=== PATIENT | female | born 1990 | race Caucasian/White ===

== ENCOUNTER 2021-03-04 09:02 | Emergency (ER) | payer BC, SELFPAY ==
[2021-03-04 09:05] VITALS: BP 121/87; PULSE 80; RESP 18; TEMP 36.7; O2SAT 97; BMI 33.1
--- NOTE | 2021-03-04 09:26 | HMH.EDUTC ---
[facility] [place] Disposition Clinical Impression: Viral syndrome Sinusitis Qualifiers: Sinusitis location: unspecified location Chronicity: acute Recurrence: non-recurrent Qualified Code(s): J01.90 - Acute sinusitis, unspecified Disposition: Home, Self-Care Condition on Discharge: Good Instructions: DI for Sinusitis, DI for Viral Syndrome, Preventing the Spread of Coronavirus Discharge Instructions Additional Instructions: Drink plenty of fluids. Take tylenol or ibuprofen for pain or fever. Take the medications as directed. Follow up with your regular doctor. GO TO THE ER FOR ANY WORSENING SYMPTOMS Quarantine until you know the results of your covid-19 test. If it is positive, the health department should call you and give you further instructions about your length of Quarantine and other things. Notify your school or workplace of your results and follow their instructions regarding return to work/school. Prescriptions: Brompheniramine/Pseudoephed/Dm [Bromfed Dm Cough Syrup] 5 ml PO Q6HP PRN #240 ml PRN Reason: Cough Transmission Status: Received by [facility] Promethazine HCl [Phenergan 25mg tab] 25 mg PO Q6H PRN #15 tab PRN Reason: Nausea And Vomiting Transmission Status: Received by [facility] Azithromycin [Z-Juan 250mg Tab*] 250 mg PO UD DOSE PK #6 tab Transmission Status: Received by [facility] Referrals: Provider,Referral, [Primary Care Provider] - Forms: Work/School Release Time of Disposition: 09:50 Medical Decision Making - Medical Records Medical records reviewed: No: I reviewed the patient's medical records. - Denis Inquiry Pt receiving controlled substance: No Vital Signs: 03/04/21 09:05 03/04/21 09:55 Temperature 98.1 F 98.1 F Temperature Source Oral Pulse Rate 80 Pulse Rate [Left Brachial] 80 Respiratory Rate 18 18 Blood Pressure 121/87 Blood Pressure [Left Arm] 121/87 Blood Pressure Mean [Left Arm] 98 Blood Pressure Source [Left Arm] Automatic Cuff Blood Pressure Position [Left Arm] Sitting 02 Sat by Pulse Oximetry 97 Oxygen Delivery Method Room Air - Lab Data Lab results reviewed: Yes: I reviewed the patient's lab results. Lab Results 03/04/21 09:24: Strep Scn Rapid Clinic Negative Orders (Tests/Meds): ORDERS Category Date Time Status Strep Screen Confirmation Stat Micro 03/04/21 09:24 Received [facility] [place] HPI - General Stated complaint: sore throat, headache, fever, congestion loss of t Time Seen by Provider: 03/04/21 09:26 Mode of Arrival: Ambulatory Source of Information: Patient Limitations: No Limitations Description of Symptoms (Recalled from Triage Doc. by RN): PATIENT C/O NASAL DRAINAGE (CLEAR-YELLOW), CONGESTION, CHILLS/SWEATS, HEADACHE, AND SORE THROAT THAT STARTED YESTERDAY HEENT Symptoms (Recalled from RN notes): Yes Resp Symptoms (Recalled from RN notes): No Skin Symptoms (Recalled from RN notes): No MS Symptoms (Recalled from RN notes): No Functional Status (Recalled from RN notes): WNL - History of Present Illness Provider Complaint: She states that for the past 2 days she has had a cough, chilling, low grade fever, scratchy sore throat. - Related Data Home Medications Medication Instructions Recorded Confirmed Fexofenadine/Pseudoephedrine 1 each PO DAILY 03/04/21 03/04/21 [Yoko-D 24 Hour Tablet] Montelukast Sodium [Singulair 10mg 10 mg PO PM 03/04/21 03/04/21 tablet] Previous Rx's Medication Instructions Recorded Azithromycin [Z-Juan 250mg Tab*] 250 mg PO UD DOSE PK #6 tab 03/04/21 Brompheniramine/Pseudoephed/Dm 5 ml PO Q6HP PRN #240 ml 03/04/21 [Bromfed Dm Cough Syrup] Promethazine HCl [Phenergan 25mg 25 mg PO Q6H PRN #15 tab 03/04/21 tab] Allergies Allergy/AdvReac Type Severity Reaction Status Date / Time heparin Allergy Verified 03/04/21 09:22 - Worker's Comp Is this a Worker's Comp case?: No [facility] History - Hepatitis A Screen Drug
[2021-03-04 09:32] LABS: UTC Strep Screen (Rapid) Negative (Negative)
[2021-03-04 09:55] VITALS: BP 121/87; PULSE 80; RESP 18; TEMP 36.7; O2SAT 97
== END 2021-03-04 10:00 | disposition home or self-care (01) ==
PROVIDERS: Emergency Provider Nurse Practitioner Family
DX: J01.90 Acute sinusitis, unspecified (principal); Z20.822 Contact with and (suspected) exposure to COVID-19
CPT/HCPCS: 87880; 99203; C9803; G0463; U0003; U0005

== ENCOUNTER 2023-08-21 19:59 | Emergency (ER) | payer OTHER, SELFPAY ==
[2023-08-21] VITALS (8 sets, daily range): BP systolic 120–144; BP diastolic 76–91; PULSE 84–101; RESP 16–20; TEMP 36.6–36.7; O2SAT 98–100; BMI 37.5; BMI 37.3
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
[2023-08-21 20:26] LABS: Basophils # 0.2 K/mm3 (0-0.2); Basophils % 1.4 % (0.1-2.0); Eosinophils # 0.4 K/mm3 (0.0-0.4); Eosinophils % 2.4 % (0.1-12.0); Hematocrit 45.3 % (37.0-47.0); Hemoglobin 14.8 g/dL (12.2-16.2); Lymphocytes # 4.5 K/mm3 (0.7-4.5); Lymphocytes % 31.2 % (10-50); Mean Corpuscular HGB Conc 32.6 g/dL (31.8-35.4); Mean Corpuscular Hemoglobin 30.8 pg (27.0-31.2); Mean Corpuscular Volume 94.6 fl (81-99); Mean Platelet Volume 8.1 fl (7.4-10.4); Monocytes # 0.7 K/mm3 (0.1-1.0); Monocytes % 4.5 % (1.7-9.3); Neutrophils # 8.8 K/mm3 (1.8-7.8); Neutrophils % 60.5 % (37.0-80.0); Platelet Count 368 K/mm3 (142-424); Red Blood Count 4.79 M/mm3 (4.20-5.40); Red Cell Distribution Width 13.3 % (11.5-17.5); White Blood Count 14.5 K/mm3 (4.8-10.8)
--- NOTE | 2023-08-21 20:26 | PC.NURSE ---
PATIENT TO CT
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
[2023-08-21 20:31] LABS: Chloride 107 mmol/L (98-107)
[2023-08-21 20:32] LABS: Potassium 4.3 mmoL/L (3.5-5.1); Sodium 138 mmol/L (136-145)
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
[2023-08-21] MEDS: ACETAMINOPHEN 1,000MG/100ML VIAL 1000 MG IV (20:33)
[2023-08-21] MEDS: MORPHINE 4MG/ML SYRINGE 4 MG IV (20:33)
[2023-08-21 20:34] LABS: Alanine Aminotransferase 46 U/L (12-78); Alkaline Phosphatase 88 U/L (38-126); Anion Gap 8.3 mEq/L (5-15); Aspartate Amino Transferase 41 U/L (14-36); Bilirubin,Total 0.5 mg/dl (0.2-1.3); Blood Urea Nitrogen 18 mg/dl (7-17); Carbon Dioxide 27 mmol/L (22.0-30.0); Creatinine Clearance Estimated 157 mL/min (50-200); Estimated Glomerular Filt Rate 96 ml/min (>60); GFR (African American) 117 ML/MIN (>60); HCG Qualitative, Serum Negative (Negative)
[2023-08-21 20:35] LABS: Albumin Level 4.6 g/dl (3.5-5.0); Albumin/Globulin Ratio 1.4 (1.1-1.8); Calcium 9.7 mg/dl (8.4-10.2); Globulin 3.4 g/dL (1.3-3.2); Glucose 108 mg/dl (74-100)
[2023-08-21] MEDS: 0.9 % SODIUM CHLORIDE 50 ML VIAL IV (20:50)
[2023-08-21] MEDS: IOPAMIDOL-370 (76%);100ML BOTTLE 100 ML IV (20:50)
[2023-08-21] MEDS: SODIUM CHLORIDE 0.9% 10ML SYR (RAD ONLY) 10 ML IV (20:50)
[2023-08-21 21:01] LABS: Troponin I < 0.01 ng/ml (0.00-0.034)
--- NOTE | 2023-08-21 21:04 | ECG_ITS ---
APPROVED REPORT Exam: Resting ECG HR:95 bpm ECG Measurements Heart Rate 95 AXES NH 166 P 29 QRSd 89 QRS -18 QT 337 T 21 QTc 389 Conclusion SINUS RHYTHM NORMAL ECG Electronically signed by : OREN PINTO, 08/21/2023 22:54:33
--- NOTE | 2023-08-21 21:30 | PC.NURSE ---
Cervical collar removed per MD verbal after negative C-spine CT result
[2023-08-21] MEDS: METHOCARBAMOL 500MG TABLET 1000 MG PO (21:53)
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
== END 2023-08-21 22:13 | disposition home or self-care (01) ==
PROVIDERS: Emergency Provider Emergency Medicine
DX: S06.0X0A Concussion without loss of consciousness, initial encounter (principal); M25.561 Pain in right knee; M25.522 Pain in left elbow; V48.0XXA Car driver injured in noncollision transport accident in nontraffic accident, initial encounter
CPT/HCPCS: 70450; 70486; 71045; 71275; 72125; 72128; 72131; 72170; 73060; 73070; 73562; 73590; 74174; 80053; 84484; 84703; 85025; 93005; 96374; 96375; 99285; J0131; Q9967

== ENCOUNTER 2023-10-24 09:10 | Outpatient (CLI) | payer OTHER, SELFPAY ==
--- NOTE | 2023-10-24 09:15 | MR_ITS ---
FINAL REPORT CLINICAL HISTORY: RIGHT KNEE PAIN FINDINGS: MRI LEFT KNEE WITHOUT CONTRAST FINDINGS: Multi planar MR imaging of the right knee was performed without contrast. The medial and lateral menisci are intact without evidence of meniscal tear. The anterior and posterior cruciate ligament are intact. The medial collateral ligament and lateral ligamentous complex are intact. The distal quadriceps tendon and patellar tendon are intact. There is no evidence of fracture. No focal abnormality is seen of the articular cartilage. A small joint effusion is seen. Musculature is intact. No soft tissue mass or cyst is identified. IMPRESSION: No focal injury identified. Reviewed, Interpreted and Dictated by Julio Marques MD Transcribed by Melissa Francisco Authenticated and [facility]
== END 2023-10-24 23:59 | disposition home or self-care (01) ==
LOC: RAD 09:10
PROVIDERS: PCP Internal Medicine; Visit Provider Internal Medicine
DX: M25.561 Pain in right knee (principal)
CPT/HCPCS: 73721